=== PATIENT | female | born 1955 | race Caucasian/White ===

== ENCOUNTER 2016-08-27 10:32 | Emergency (ER) | payer OTHER ==
[~2016-08-27] VITALS: Ht 160 cm; Wt 122.0 kg
[~2016-08-27 10:32] MED LIST: BENZ100 PO; CIPRHC10A LEFT EAR; CLON-352 PO; FURO20 PO; HUMALOG SQ; METF-324 PO; PROZ20CA11 PO; ROBIACUDC PO; SYNT112T PO
[2016-08-27 10:44] VITALS: BP 161/84; PULSE 76; RESP 16; TEMP 97.8; O2SAT 97
[2016-08-27] MEDS ORDERED: SYNT112T PO (11:15)
[2016-08-27] MEDS ORDERED: HUMALOG 70/30 SQ (11:15)
[2016-08-27] MEDS ORDERED: CLON0.1T PO (11:15)
[2016-08-27] MEDS ORDERED: METF1000 PO (11:15)
[2016-08-27] MEDS ORDERED: FURO1TAB62 PO (11:15)
[2016-08-27] MEDS ORDERED: PROZ20CA11 PO (11:15)
--- NOTE | 2016-08-27 11:30 | PD ---
HPI Chief Complaint: Musculoskeletal Complaint Time Seen by Provider: 11:27 Travel History International Travel<30 days: No Contact w/Intl Traveler<30days: No Traveled to known affect area: No History of Present Illness HPI 61-year-old female presents to the emergency department for evaluation of left hand pain for one week. She denies a traumatic injury. She states is on the volar surface below the again third and fourth digits. She states that sometimes, her left third finger will get stuck in a flexed position. She does report a history of an old hand injury. Patient reports a history of diabetes, hypertension, diabetes, hypothyroidism. Patient denies any fevers or chills. She denies any other complaints at this time to [facility] Past Medical History Hx Anticoagulant Therapy: No Arthritis: Yes Anxiety: Yes Cardiovascular Problems: Yes (htn on meds) High Cholesterol: Yes Diabetes: Yes (type 2) Patient Takes Glucophage: Yes Diminished Hearing: No Hypertension: Yes Immunizations Current: Yes Thyroid Disease: Yes ?: Not Menopausal: Yes : 3 Para: 3 Miscarriage: 0 : 0 Past Surgical History Endocrine Surgery: Yes (THYROID) Gynecologic Surgery: Yes (1995--remaining ovary and tube removed) Hysterectomy: Yes Joint Replacement: Yes (KNEE) Oral Surgery: Yes (DEVIATED SEPTUM 1987) Tonsillectomy: Yes Other Surgery: Yes (BILATERAL WRIST SURGERY FOR CARPEL TUNNEL, NOSE SURGERY) Social History Alcohol Use: No Tobacco Use: No Substance Use: No Allergies-Medications (Allergen,Severity, Reaction): Coded Allergies: Ampicillin (Verified Adverse Reaction, Severe, Diarrhea, 08/27/16) Sulfa (Verified Adverse Reaction, Severe, Upset stomach/diarrhea, 08/27/16) Reported Meds & Prescriptions Reported Meds & Active Scripts Active Reported [Humalog 70/30] 60 SQ BID Metformin (Metformin HCl) 1,000 Mg Tab 1,000 Mg PO BIDPC With meals Synthroid (Levothyroxine Sodium) 112 Mcg Tab 112 Mcg PO DAILY Lasix (Furosemide) 20 Mg Tab 20 Mg PO DAILY Prozac (Fluoxetine HCl) 20 Mg Cap 20 Mg PO DAILY Clonidine (Clonidine HCl) 0.1 Mg Tab 0.1 Mg PO TID Review of Systems Except as stated in HPI: all other systems reviewed are Neg Physical Exam Narrative GENERAL: Well-developed well-nourished female patient, ambulatory. Afebrile. SKIN: Warm and dry. No erythema or warmth noted the left hand. No evidence of cellulitis or infection. HEAD: Normocephalic. Atraumatic. EYES: No scleral icterus. No injection or drainage. NECK: Supple, trachea midline. No JVD or lymphadenopathy. CARDIOVASCULAR: Regular rate and rhythm without murmurs, gallops, or rubs. Left radial pulses 2+. Capillary refill is less than 2 seconds to the digits of the left hand. RESPIRATORY: Breath sounds equal bilaterally. No accessory muscle use. MUSCULOSKELETAL: No cyanosis, or edema. Patient has tenderness over the volar surface especially just proximal to the third digit. She has full range of motion of all digits of the left hand. She has full sensation distal left upper extremity. Data Data Last Documented VS Vital Signs Date Time Temp Pulse Resp B/P Pulse Ox O2 Delivery O2 Flow Rate FiO2 08/27/16 10:44 97.8 76 16 161/84 97 Orders Hand, Complete ([id number]) (08/27/16 ) [facility] Medical Decision Making Medical Screen Exam Complete: Yes Emergency Medical Condition: Yes Medical Record Reviewed: Yes Interpretation(s) left hand x-ray - CONCLUSION: No acute left hand abnormality is identified. There is mild osteoarthritis at the first CMC joint. Differential Diagnosis Tendinitis versus trigger finger versus contusion versus strain versus unlikely fracture versus arthritis Narrative Course 61-year-old female presents to the emergency department for evaluation of left hand pain for one week without injury. X-ray of the left hand is ordered and pending. X-ray of the left hand shows no acute left hand abnormality is identified. There is mild osteoarthritis at the first CMC joint. Patient instructed to follow-up with a hand surgeon. She'll be given the name and number of our hand surgeon on-call today. Patient will be discharged prescription for diclofenac. Patient is agreeable. Diagnosis Primary Impression: Arthritis of left hand Additional Impression: Trigger finger Qualified Code: M65.332 - Trigger middle finger of left hand Referrals: Inder Goldman MD call for appointment Patient Instructions: Arthritis (ED), General Instructions Additional Instructions: Take diclofenac as instructed as needed with food for pain. Do not take with other anti-inflammatories including ibuprofen and naproxen. Follow-up with a hand surgeon. Dr. Goldman is our hand surgeon on-call. His information is attached. Return to the emergency department for any acute worsening of symptoms. Med/Other Pt SpecificInfo: Prescription(s) given Scripts Diclofenac Sodium DR 75 Mg Tabdr75 Mg PO BID PRN (PAIN SCALE 1 TO 10) #20 TAB Ref 0 Prov:Lanie Bui 08/27/16 Disposition: 01 DISCHARGE HOME Condition: Stable Lanie Bui Aug 27, 2016 11:30
--- NOTE | 2016-08-27 12:24 | RADHPO ---
EXAM DATE/TIME: 08/27/2016 11:52 [facility] COMPARISON: No previous studies available for comparison. INDICATIONS : Left hand pain for 1 week, no known injury MEDICAL HISTORY : Diabetes mellitus type II. SURGICAL HISTORY : None. ENCOUNTER: Initial ACUITY: 1 week PAIN SCORE: 7/10 LOCATION: Left hand FINDINGS: Three views of the left hand demonstrate no fracture or dislocation. Mineralization is within normal limits and there is mild osteoarthritis at the first carpometacarpal joint. No soft tissue abnormalit y or radiopaque foreign body is identified. CONCLUSION: No acute left hand abnormality is identified. There is mild osteoarthritis at the first CMC joint. Marlo Velasco MD on August 27, 2016 at 12:22 Board Certified Radiologist. This report was verified electronically.
[2016-08-27] MEDS ORDERED: DICL75TA PO (12:30)
== END 2016-08-27 12:42 | disposition home or self-care (01) ==
LOC: PHEFT 10:32
DX: M19.041 Primary osteoarthritis, right hand (principal); I10 Essential (primary) hypertension; E11.9 Type 2 diabetes mellitus without complications; E03.9 Hypothyroidism, unspecified
CPT/HCPCS: 73130; 99283

== ENCOUNTER 2017-01-02 09:25 | Emergency (ER) | payer OTHER ==
[~2017-01-02] VITALS: Ht 160 cm; Wt 120.7 kg
[~2017-01-02 09:25] MED LIST changes: -BENZ100 PO; -CIPRHC10A LEFT EAR; -CLON-352 PO; +CLON0.1T PO; +DICL75TA PO; +FURO1TAB62 PO; -FURO20 PO; +HUMALOG 70/30 SQ; -HUMALOG SQ; -METF-324 PO; +METF1000 PO; -ROBIACUDC PO
[2017-01-02 09:32] VITALS: BP 136/68; PULSE 74; RESP 19; TEMP 98.1; O2SAT 98
[2017-01-02] MEDS ORDERED: FURO20TA PO (09:43)
[2017-01-02] MEDS ORDERED: LISI-515 PO (09:43)
--- NOTE | 2017-01-02 10:06 | PD ---
HPI Chief Complaint: Back/ Neck Pain or Injury Time Seen by Provider: 09:36 Travel History International Travel<30 days: No Contact w/Intl Traveler<30days: No Traveled to known affect area: No History of Present Illness HPI 61yo F with PMH of DM presents to the ED with c/o lower back pain since yesterday. States that she fell asleep on the chair and pain is bilateral lower back and worst with movement. Pain is constant and nonradiating. Denies any trauma, fall, fever, focal weakness or numbness. Pt also with dysuria since yesterday. Denies any cough, chest pain, sob, abdominal pain. PFSH Past Medical History Hx Anticoagulant Therapy: No Arthritis: Yes Anxiety: Yes Cardiovascular Problems: Yes (htn on meds) High Cholesterol: Yes Diabetes: Yes (type 2) Patient Takes Glucophage: Yes Diminished Hearing: No Hypertension: Yes Immunizations Current: Yes Thyroid Disease: Yes ?: Not Menopausal: Yes : 3 Para: 3 Miscarriage: 0 : 0 Past Surgical History Endocrine Surgery: Yes (THYROID) Gynecologic Surgery: Yes (1995--remaining ovary and tube removed) Hysterectomy: Yes Joint Replacement: Yes (KNEE) Oral Surgery: Yes (DEVIATED SEPTUM 1987) Tonsillectomy: Yes Other Surgery: Yes (BILATERAL WRIST SURGERY FOR CARPEL TUNNEL, NOSE SURGERY) Social History Alcohol Use: No Tobacco Use: No Substance Use: No Allergies-Medications (Allergen,Severity, Reaction): Coded Allergies: Ampicillin (Verified Adverse Reaction, Severe, Diarrhea, 01/02/17) Sulfa (Verified Adverse Reaction, Severe, Upset stomach/diarrhea, 01/02/17) Reported Meds & Prescriptions Reported Meds & Active Scripts Active Lortab (Hydrocodone-Acetaminophen) 5-325 Mg Tab 1 Tab PO Q6H PRN Reported Furosemide 20 Mg Tab Unknown Dose PO DAILY Lisinopril 20 Mg Tab 20 Mg PO DAILY [Humalog 70/30] 60 SQ BID Metformin (Metformin HCl) 1,000 Mg Tab 1,000 Mg PO BIDPC With meals Synthroid (Levothyroxine Sodium) 112 Mcg Tab 112 Mcg PO DAILY Prozac (Fluoxetine HCl) 20 Mg Cap 30 Mg PO DAILY Review of Systems Except as stated in HPI: all other systems reviewed are Neg Physical Exam Narrative GENERAL: 61yo F not in distress. SKIN: Focused skin assessment warm/dry. HEAD: Atraumatic. Normocephalic. CARDIOVASCULAR: Regular rate and rhythm. No murmur appreciated. RESPIRATORY: No accessory muscle use. Clear to auscultation. Breath sounds equal bilaterally. GASTROINTESTINAL: Abdomen soft, non-tender, nondistended. BACK: No midline ttp. Paraspinal ttp lumbar spine bilaterally. Negative straight leg test. MUSCULOSKELETAL: No obvious deformities. No clubbing. No cyanosis. No edema. NEUROLOGICAL: Awake and alert. No obvious cranial nerve deficits. Motor grossly within normal limits. Normal speech. PSYCHIATRIC: Appropriate mood and affect; insight and judgment normal. Data Data Last Documented VS Vital Signs Date Time Temp Pulse Resp B/P Pulse Ox O2 Delivery O2 Flow Rate FiO2 01/02/17 09:32 98.1 74 19 136/68 98 Orders Urinalysis - C+S If Indicated (01/02/17 10:01) Blood Glucose (01/02/17 10:01) Ketorolac Inj (Toradol Inj) (01/02/17 10:15) Labs Laboratory Tests Test 01/02/17 10:05 Urine Collection Type CLEAN CATCH Urine Color STRAW Urine Turbidity CLEAR Urine pH 5.5 Urine Specific [place] 1.007 Urine Protein NEG mg/dL Urine Glucose (UA) NEG mg/dL Urine Ketones NEG mg/dL Urine Occult Blood NEG Urine Nitrite NEG Urine Bilirubin NEG Urine Leukocyte Esterase NEG Urine Squamous Epithelial 0-5 /hpf Cells Urine Amorphous Sediment FEW Microscopic Urinalysis Comment CULT NOT INDICATED Urine Collection Time 1005 [facility] Medical Decision Making Medical Screen Exam Complete: Yes Emergency Medical Condition: Yes Interpretation(s) Laboratory Tests Test 01/02/17 10:05 Urine Collection Type CLEAN CATCH Urine Color STRAW (YELLW/STRAW) Urine Turbidity CLEAR (CLEAR) Urine pH 5.5 (5.0-8.5) Urine Specific [place] 1.007 (1.002-1.035) Urine Protein NEG mg/dL (NEG-TRACE) Urine Glucose (UA) NEG mg/dL (NEG) Urine Ketones NEG mg/dL (NEG) Urine Occult Blood NEG (NEG) Urine Nitrite NEG (NEG) Urine Bilirubin NEG (NEG) Urine Leukocyte Esterase NEG (NEG) Urine Squamous Epithelial 0-5 /hpf (0-5) Cells Urine Amorphous Sediment FEW Microscopic Urinalysis Comment CULT NOT INDICATED Urine Collection Time 1005 Differential Diagnosis Musculoskeletal pain vs. pyelonephritis vs. muscle sprain Narrative Course 61yo F with lower back pain that seems very musculoskeletal. UA showed no blood or leukocyte. Pt given toradol and states her pain has resolved. Blood glucose is 189. No red flags. Return precautions given. Pt states naproxen does not help with her pain and wants something stronger. Will give a few lortab and have pt follow up with PMD. Diagnosis Primary Impression: Back pain Qualified Code: M54.5 - Acute bilateral low back pain without sciatica Patient Instructions: General Instructions Departure Forms: Tests/Procedures Additional Instructions: Please follow up with your PMD in 1-2 days. Return to the ED if symptoms worsen. Med/Other Pt SpecificInfo: Prescription(s) given Scripts Hydrocodone-Acetaminophen (Lortab)5-325 Mg Tab1 Tab PO Q6H PRN (PAIN) #7 TAB Ref 0 Prov:Tova Jones DO 01/02/17 Disposition: 01 DISCHARGE HOME Condition: Stable Tova Jones DO January 02, 2017 10:06
[2017-01-02 10:11] LABS: BLOOD, URINE NEG (NEG); GLUCOSE,URINE NEG (NEG); KETONE, URINE NEG (NEG); NITRITE,URINE NEG (NEG); PH, URINE 5.5 (5.0-8.5)
[2017-01-02 10:13] LABS: METHOD OF COLLECTION CLEAN CATCH; URINE COLOR STRAW (YELLW/STRAW)
[2017-01-02] MEDS ORDERED: KETOROLAC TROMETHAMINE 60 MG/2 ML (IM) VIAL IM ONE (10:15)
[2017-01-02 10:27] LABS: COMMENT (UR) CULT NOT INDICATED; CULTURE IF INDICATED CULT NOT INDICATED; SQUAMOUS EPITHELIAL CELL URINE 0-5 /hpf (0-5)
[2017-01-02] MEDS ORDERED: HYDR-3533 PO (11:26)
== END 2017-01-02 11:31 | disposition home or self-care (01) ==
LOC: PHEFT 09:25
DX: M54.5 Low back pain (principal); R30.0 Dysuria; M19.90 Unspecified osteoarthritis, unspecified site; F41.9 Anxiety disorder, unspecified; E78.00 Pure hypercholesterolemia, unspecified; E11.9 Type 2 diabetes mellitus without complications; I10 Essential (primary) hypertension; E07.9 Disorder of thyroid, unspecified; Z79.4 Long term (current) use of insulin
CPT/HCPCS: 81001; 96372; 99284; J1885

== ENCOUNTER 2017-01-21 18:07 | Emergency (ER) | payer OTHER ==
[~2017-01-21] VITALS: Ht 160 cm; Wt 120.0 kg
[~2017-01-21 18:07] MED LIST changes: -CLON0.1T PO; -DICL75TA PO; -FURO1TAB62 PO; +FURO20TA PO; +HYDR-3533 PO; +LISI-515 PO
[2017-01-21 18:11] VITALS: BP_SYST 143; BP_DIAS 29; BP_DIAS 79; PULSE 83; RESP 18; TEMP 98.8; O2SAT 98
[2017-01-21] MEDS ORDERED: NOVO7030P2 SQ (18:17)
[2017-01-21] MEDS ORDERED: OMEP20TA PO (18:17)
[2017-01-21] MEDS ORDERED: ROBA500T PO (18:30)
[2017-01-21] MEDS ORDERED: IBUP800T23 PO (18:30)
--- NOTE | 2017-01-21 18:31 | PD ---
HPI Chief Complaint: Musculoskeletal Complaint Time Seen by Provider: 18:15 Travel History International Travel<30 days: No Contact w/Intl Traveler<30days: No Traveled to known affect area: No History of Present Illness HPI 61-year-old female presents emergency department for evaluation right-sided neck pain and muscle stiffness since this morning. Patient reports that she slipped on the refiner last night and when she awoke she noticed the right side of her neck was stiff. Throughout the day has become increasingly more painful and stiff with difficulty turning head from [id number]. She denies any midline tenderness. She denies trauma or fall. She denies numbness/tingling/ weakness in the upper extremities. Patient reports pain in the right side of the neck spasming and stiffness in nature, nonradiating, worse with movement relieved with rest, severity 6 out of 10. PFSH Past Medical History Narrative Medical Significant for diabetes on Glucophage, hypertension, dyslipidemia, anxiety Hx Anticoagulant Therapy: No Arthritis: Yes Anxiety: Yes Cardiovascular Problems: Yes (htn on meds) High Cholesterol: Yes Diabetes: Yes (type 2) Patient Takes Glucophage: Yes Diminished Hearing: No Hypertension: Yes Immunizations Current: Yes Thyroid Disease: Yes Tetanus Vaccination: < 5 Years Influenza Vaccination: No Menopausal: Yes : 3 Para: 3 Miscarriage: 0 : 0 Past Surgical History Endocrine Surgery: Yes (THYROID) Gynecologic Surgery: Yes (1995--remaining ovary and tube removed) Hysterectomy: Yes Joint Replacement: Yes (KNEE) Oral Surgery: Yes (DEVIATED SEPTUM 1987) Tonsillectomy: Yes Other Surgery: Yes (BILATERAL WRIST SURGERY FOR CARPEL TUNNEL, NOSE SURGERY) Social History Alcohol Use: No Tobacco Use: No Substance Use: No Allergies-Medications (Allergen,Severity, Reaction): Coded Allergies: Ampicillin (Verified Adverse Reaction, Severe, Diarrhea, 01/02/17) Sulfa (Verified Adverse Reaction, Severe, Upset stomach/diarrhea, 01/02/17) Reported Meds & Prescriptions Reported Meds & Active Scripts Active Robaxin (Methocarbamol) 500 Mg Tab 500 Mg PO TID PRN Ibuprofen 800 Mg Tab 800 Mg PO Q8H PRN Reported Novolin 70-30 Inj (Insulin Human Isoph/Insulin Regular) 1,000 Unit/10 Ml Vial 1 Units SQ Omeprazole 20 Mg Tab 20 Mg PO DAILY Furosemide 20 Mg Tab Unknown Dose PO DAILY Lisinopril 20 Mg Tab 20 Mg PO DAILY Metformin (Metformin HCl) 1,000 Mg Tab 1,000 Mg PO BIDPC With meals Synthroid (Levothyroxine Sodium) 112 Mcg Tab 112 Mcg PO DAILY Prozac (Fluoxetine HCl) 20 Mg Cap 30 Mg PO DAILY Review of Systems Except as stated in HPI: all other systems reviewed are Neg Physical Exam Narrative GENERAL: Alert, well-appearing female SKIN: Focused skin assessment warm/dry. HEAD: Atraumatic. Normocephalic. EYES: Pupils equal and round. No scleral icterus. No injection or drainage. ENT: No nasal bleeding or discharge. Mucous membranes pink and moist. NECK: Trachea midline. No JVD. No midline spine tenderness. Right-sided trapezius muscle spasm and tenderness. CARDIOVASCULAR: Regular rate and rhythm. No murmur appreciated. RESPIRATORY: No accessory muscle use. Clear to auscultation. Breath sounds equal bilaterally. GASTROINTESTINAL: Abdomen soft, non-tender, nondistended. Hepatic and splenic margins not palpable. MUSCULOSKELETAL: No obvious deformities. No clubbing. No cyanosis. No edema. NEUROLOGICAL: Awake and alert. No obvious cranial nerve deficits. Motor grossly within normal limits. Normal speech. PSYCHIATRIC: Appropriate mood and affect; insight and judgment normal. Data Data Last Documented VS Vital Signs Date Time Temp Pulse Resp B/P Pulse Ox O2 Delivery O2 Flow Rate FiO2 01/21/17 18:11 98.8 83 18 143/79 98 Room Air Orders Ketorolac Inj (Toradol Inj) (01/21/17 18:45) Orphenadrine Inj (Norflex Inj) (01/21/17 18:45) MDM Medical Decision Making Medical Screen Exam Complete: Yes Emergency Medical Condition: Yes Differential Diagnosis Torticollis, cervical strain Narrative Course 61-year-old female presents emergency department for right-sided neck pain after sleeping on a recliner last night. She reports the neck has become increasingly more painful and stiff as the day goes on. The pain is localized to the right side nonradiating severity 6 out of 10 worse with movement of the neck. No midline tenderness. Patient has palpable trapezius muscle spasm on the right side. Diagnosis Primary Impression: Trapezius muscle spasm Referrals: Primary Care Physician Additional Instructions: Take the medication as prescribed as needed for pain and muscle spasm in the neck. Follow-up the primary care doctor for reevaluation. Return to emergency department if new or worsening symptoms. Scripts Methocarbamol (Robaxin)500 Mg [id number] Mg PO TID PRN (MUSCLE SPASM) #15 TAB Prov:Hanna Zhu 01/21/17 Ibuprofen 800 Mg [id number] Mg PO Q8H PRN (Pain/Inflammation) #30 TAB Prov:Hanna Zhu 01/21/17 Disposition: 01 DISCHARGE HOME Condition: Stable Hanna Zhu Jan 21, 2017 18:31
[2017-01-21] MEDS ORDERED: ORPHENADRINE INJ 60 MG/2 ML AMP IM ONE (18:45)
[2017-01-21] MEDS ORDERED: KETOROLAC TROMETHAMINE 60 MG/2 ML (IM) VIAL IM ONE (18:45)
== END 2017-01-21 18:51 | disposition home or self-care (01) ==
LOC: PHEFT 18:07
DX: M62.838 Other muscle spasm (principal); E11.9 Type 2 diabetes mellitus without complications; E78.00 Pure hypercholesterolemia, unspecified; I10 Essential (primary) hypertension; Z79.4 Long term (current) use of insulin
CPT/HCPCS: 96372; 99284; J1885; J2360

== ENCOUNTER → 2017-05-11 | Day surgery (SDC) | payer OTHER ==
[~2017-05-11] MED LIST changes: +ALBI1INJ SQ; +BUPIVACAINE HCL PF 0.5% 10 ML VIAL ONE; +BUPIVACAINE HCL PF 0.5% 30 ML VIAL ONE; +BUSP5TAB PO; -HUMALOG 70/30 SQ; -HYDR-3533 PO; +IBUP800T23 PO; +KETOROLAC TROMETHAMINE 30 MG/ML (IVP) VIAL IV PUSH ONE; +LEVO75TA3 PO; +MIDAZOLAM HCL 2 MG/2 ML VIAL ONE; +NOVO7030P2 SQ; +OMEP20TA PO; +ONDANSETRON HCL 4 MG/2 ML VIAL IV PUSH ONE; +PROPOFOL 100 MG/10 ML INJ IV ONE; +ROBA500T PO; +TRAM50TA PO; +ZOFR4TAB PO; +ceFAZolin INJ 1,000 MG VIAL ONE
--- NOTE | 2017-05-11 13:42 | PD.OP ---
cc: Peterson Bravo Jr., MD Operative Report Date of Surgery: May 11, 2017 Preoperative Diagnosis: right long finger trigger finger Postoperative Diagnosis: same Procedure: right long finger trigger finger release Anesthesia: gen Surgeon: Peterson Bravo Chief Resource Officer(s): staff Resident Surgeon: none Operation and Findings: Patient was seen and evaluated preoperatively and found to have a debilitating and painful trigger finger at the right long, that has so far failed nonoperative treatment. Informed consent was obtained after detailed discussion of risk and benefits including bleeding, infection, injury to arteries, nerves, and blood vessels, weakness and numbness of hand, and tendon rupture. Informed consent was obtained. Patient received IV antibiotics prior to incision. Timeout procedure was performed. Operative extremity was prepped with alcohol followed by Hibiclens and draped usual sterile fashion. A 1 cm long vertical incision was made at the proximal palmar crease and followed by sharp dissection through the subcutaneous tissue. Blunt dissection was used to expose the flexor tendon and the proximal edge of the A1 daniel. Using an #11 knife blade, the A1 daniel was incised from proximal to distal. The finger was then put through a full range of motion with no triggering and I could see the hyperthrophic bump on the flexor tendon appear and disappear, and there was no triggering. The wound was irrigated copiously with normal saline and the incision closed with 4 interrupted simple sutures of 2-0 nylon. A sterile pressure dressing was placed over the hand. The patient was awakened and returned to recovery in apparently good condition POSTP-OP PLAN OF ACTIVITY Antibiotics: none Antiocoagulation: none Weight bearing status: WBAT Dressing: Do not remove until outpatient clinic visit in 10days Dispo: expected discharge TODAY home from PACU Peterson Bravo Jr., MD May 11, 2017 13:42
== END | disposition home or self-care (01) ==
LOC: ESDC 09:46
PROVIDERS: ATTEND Orthopaedic Surgery
DX: M65.331 Trigger finger, right middle finger (principal); E11.9 Type 2 diabetes mellitus without complications; Z79.4 Long term (current) use of insulin
CPT/HCPCS: 01810; 26055; 82948; J0690; J1885; J2250; J2405; J3010

== ENCOUNTER → 2017-05-24 | Outpatient (CLI) | payer OTHER ==
[~2017-05-24] MED LIST changes: -BUPIVACAINE HCL PF 0.5% 10 ML VIAL ONE; -BUPIVACAINE HCL PF 0.5% 30 ML VIAL ONE; -IBUP800T23 PO; -KETOROLAC TROMETHAMINE 30 MG/ML (IVP) VIAL IV PUSH ONE; -MIDAZOLAM HCL 2 MG/2 ML VIAL ONE; -ONDANSETRON HCL 4 MG/2 ML VIAL IV PUSH ONE; -PROPOFOL 100 MG/10 ML INJ IV ONE; -ROBA500T PO; -SYNT112T PO; -ceFAZolin INJ 1,000 MG VIAL ONE
--- NOTE | 2017-05-24 10:35 | RADRPT ---
EXAM DATE/TIME: 05/24/2017 09:20 [facility] COMPARISON: No previous studies available for comparison. INDICATIONS : Right upper quadrant tenderness. MEDICAL HISTORY : Hypertension. Hypercholesterolemia. Thyroid disease. Diabetic. SURGICAL HISTORY : Tonsillectomy. Hysterectomy. Bilateral foot surgery. Bilateral knee surgery. Bilateral carpal ruth ann marlyn repair. ENCOUNTER: Initial ACUITY: 1 week PAIN SCORE: 4/10 LOCATION: Right upper quadrant MEASUREMENTS: LIVER: 20.0 cm length COMMON DUCT: 4 mm RIGHT KIDNEY: 9.4 x 5.0 x 4.6 cm FINDINGS: LIVER: Increased echotexture without focal lesion or ductal dilatation. COMMON DUCT: No intraluminal mass or stone visualized. GALLBLADDER: Contains no stones, demonstrates no wall thickening or pericholecystic fluid. PANCREAS: The visualized portions are within normal limits. RIGHT KIDNEY: No evidence of hydronephrosis, stone, or mass. CONCLUSION: 1. Sonographic features characteristic of an enlarged, fatty liver. 2. Otherwise negative. Gallbladder is sonographically normal. Cade Flannery MD on May 24, 2017 at 10:30 Board Certified Radiologist. This report was verified electronically.
== END ==
LOC: PHRAD 09:03
PROVIDERS: ATTEND Physician Assistant Medical
DX: R10.811 Right upper quadrant abdominal tenderness (principal)
CPT/HCPCS: 76705

== ENCOUNTER 2017-07-05 07:49 | Emergency (ER) | payer MEDICAID, OTHER ==
[~2017-07-05] VITALS: Ht 160 cm; Wt 106.0 kg
[~2017-07-05 07:49] MED LIST changes: -OMEP20TA PO; +OMEP20TA93 PO
[2017-07-05 07:54] VITALS: BP 173/77; PULSE 72; RESP 19; TEMP 98.1; O2SAT 96
--- NOTE | 2017-07-05 08:04 | PD ---
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 PFSH Past Medical History Hx Anticoagulant Therapy: No Arthritis: Yes Anxiety: Yes Cardiovascular Problems: Yes (htn on meds) High Cholesterol: Yes Diabetes: Yes (type 2) Diminished Hearing: No Hypertension: Yes Immunizations Current: Yes Thyroid Disease: Yes Menopausal: Yes : 3 Para: 3 Miscarriage: 0 : 0 Past Surgical History Endocrine Surgery: Yes (THYROID) Gynecologic Surgery: Yes (1995--remaining ovary and tube removed) Hysterectomy: Yes Joint Replacement: Yes (KNEE) Oral Surgery: Yes (DEVIATED SEPTUM 1987) Tonsillectomy: Yes Other Surgery: Yes (BILATERAL WRIST SURGERY FOR CARPEL TUNNEL, NOSE SURGERY) Social History Alcohol Use: No Tobacco Use: No Substance Use: No Allergies-Medications (Allergen,Severity, Reaction): Coded Allergies: Sulfa (Sulfonamide Antibiotics) (Unverified Adverse Reaction, Severe, Upset stomach/diarrhea, 07/05/17) ampicillin (Unverified Adverse Reaction, Severe, Diarrhea, 07/05/17) Reported Meds & Prescriptions Reported Meds & Active Scripts Active Buspirone (Buspirone HCl) 5 Mg Tab 5 Mg PO BID Levothyroxine (Levothyroxine Sodium) 75 Mcg Tab 75 Mcg PO DAILY Tramadol (Tramadol HCl) 50 Mg Tab 50 Mg PO Q6H PRN Reported Novolin 70-30 Inj (Insulin Human Isoph/Insulin Regular) 1,000 Unit/10 Ml Vial 25 Units SQ BID Metformin (Metformin HCl) 500 Mg Tab 500 Mg PO BIDPC Tanzeum 4-Pack Inj (Albiglutide) 30 Mg Pfpen 30 Mg SQ Q7D Omeprazole 20 Mg Tab 20 Mg PO DAILY Furosemide 20 Mg Tab Unknown Dose PO DAILY Lisinopril 20 Mg Tab 20 Mg PO DAILY Prozac (Fluoxetine HCl) 20 Mg Cap 30 Mg PO DAILY Review of Systems General / Constitutional: No: Fever Eyes: No: Visual changes HENT: No: Headaches Cardiovascular: No: Chest Pain or Discomfort Respiratory: No: Shortness of Breath Gastrointestinal: No: Abdominal Pain Genitourinary: No: Dysuria Musculoskeletal: Positive: Pain Skin: No Rash Neurologic: No: Weakness Psychiatric: No: Depression Endocrine: No: Polydipsia Hematologic/Lymphatic: No: Easy Bruising Physical Exam Narrative GENERAL: SKIN: Warm and dry. HEAD: Atraumatic. Normocephalic. EYES: Pupils equal and round. No scleral icterus. No injection or drainage. ENT: No nasal bleeding or discharge. Mucous membranes pink and moist. NECK: Trachea midline. No JVD. CARDIOVASCULAR: Regular rate and rhythm. RESPIRATORY: No accessory muscle use. Clear to auscultation. Breath sounds equal bilaterally. GASTROINTESTINAL: Abdomen soft, non-tender, nondistended. MUSCULOSKELETAL: Extremities without clubbing, cyanosis, or edema. No obvious deformities, however limited rom due to pain NEUROLOGICAL: Awake and alert. No obvious cranial nerve deficits. Motor grossly within normal limits. Five out of 5 muscle strength in the arms and legs. Normal speech. PSYCHIATRIC: Appropriate mood and affect; insight and judgment normal. Data Data Last Documented VS Vital Signs Date Time Temp Pulse Resp B/P (MAP) Pulse Ox O2 Delivery O2 Flow Rate FiO2 07/05/17 07:54 98.1 72 19 173/77 (109) 96 Orders Orders Wrist, Complete ([id number]) (07/05/17 ) [facility] Medical Decision Making Medical Screen Exam Complete: Yes Emergency Medical Condition: Yes Medical Record Reviewed: Yes Differential Diagnosis wrist fx v dislocation v subluxation v tendonitis v arthritis Narrative Course per my interpretation xray does not show any e/o fracture/dislocation. Diagnosis Primary Impression: tendonitis Patient Instructions: General Instructions, Tendinitis (ED) Scripts Ketorolac (Ketorolac) 10 Mg Tab 10 MG PO TID for Pain Management, #12 TAB 0 Refills Prov: Jan Hays MD 07/05/17 Disposition: 01 DISCHARGE HOME Condition: Stable Jan Hays MD Jul 05, 2017 08:04
[2017-07-05] MEDS ORDERED: METF500T PO (08:07)
[2017-07-05] MEDS ORDERED: NOVO7030P2 SQ (08:07)
[2017-07-05] MEDS ORDERED: KETO10 PO (08:33)
--- NOTE | 2017-07-05 08:42 | RADRPT ---
EXAM DATE/TIME: 07/05/2017 08:15 [facility] COMPARISON: No previous studies available for comparison. INDICATIONS : Fall, left medial wrist pain. MEDICAL HISTORY : None. SURGICAL HISTORY : left carpal tunnel ENCOUNTER: Initial ACUITY: 4 - 6 days PAIN SCORE: 5/10 LOCATION: Left medial wrist FINDINGS: Three view examination of the left wrist demonstrates no soft tissue swelling, dislocation, or fractu re. The carpal bones are in normal alignment. The joint spaces are maintained. Bony mineralization is normal. CONCLUSION: Unremarkable examination of the left wrist. Bruce Terrell Jr., MD on July 05, 2017 at 8:38 Board Certified Radiologist. This report was verified electronically.
== END 2017-07-05 08:45 | disposition home or self-care (01) ==
LOC: PHEFT 07:49
DX: M77.9 Enthesopathy, unspecified (principal)
CPT/HCPCS: 73110; 99283; L3908

== ENCOUNTER 2017-07-19 14:12 | Emergency (ER) | payer OTHER ==
[~2017-07-19] VITALS: Ht 160 cm; Wt 105.2 kg
[~2017-07-19 14:12] MED LIST changes: +KETO10 PO; -METF1000 PO; +METF500T PO; -ZOFR4TAB PO
[2017-07-19 14:16] VITALS: BP 167/77; PULSE 70; RESP 18; TEMP 97.6; O2SAT 97
--- NOTE | 2017-07-19 14:38 | PD ---
HPI Chief Complaint: Musculoskeletal Complaint Time Seen by Provider: 14:21 Travel History International Travel<30 days: No Contact w/Intl Traveler<30days: No Traveled to known affect area: No History of Present Illness HPI Patient comes emergency department for continued pain over the ulnar aspect of the left wrist that she was seen here for on the of last month. Patient denied any trauma at that time, however today states that she did actually tripped and fell before Thanksgiving hitting the ulnar aspect of her left wrist on the ground and then had injured further when someone grabbed same wrist while helping her stand up from the fall. Patient states she has been taking the medication prescribed, but found Aleve helps more. Pain is worse with palpation, certain movement, and resting on left wrist. Patient's been wearing a wrist brace that helps some. Patient reports blood sugars running 100-120. Denies any other known trauma. Describes pain as burning like in nature without radiation. PFSH Past Medical History Hx Anticoagulant Therapy: No Arthritis: Yes Anxiety: Yes Cardiovascular Problems: Yes (htn on meds) High Cholesterol: Yes Diabetes: Yes (type 2) Patient Takes Glucophage: Yes Diminished Hearing: No Hypertension: Yes Immunizations Current: Yes Thyroid Disease: Yes Influenza Vaccination: No Menopausal: Yes : 3 Para: 3 Miscarriage: 0 : 0 Past Surgical History Endocrine Surgery: Yes (THYROID) Gynecologic Surgery: Yes (1995--remaining ovary and tube removed) Hysterectomy: Yes Joint Replacement: Yes (KNEE) Oral Surgery: Yes (DEVIATED SEPTUM 1987) Tonsillectomy: Yes Other Surgery: Yes (BILATERAL WRIST SURGERY FOR CARPEL TUNNEL, NOSE SURGERY) Social History Alcohol Use: No Tobacco Use: No Substance Use: No Allergies-Medications (Allergen,Severity, Reaction): Coded Allergies: Sulfa (Sulfonamide Antibiotics) (Unverified Adverse Reaction, Severe, Upset stomach/diarrhea, 07/05/17) ampicillin (Unverified Adverse Reaction, Severe, Diarrhea, 07/05/17) Reported Meds & Prescriptions Reported Meds & Active Scripts Active Ketorolac (Ketorolac Tromethamine) 10 Mg Tab 10 Mg PO TID Buspirone (Buspirone HCl) 5 Mg Tab 5 Mg PO BID Levothyroxine (Levothyroxine Sodium) 75 Mcg Tab 75 Mcg PO DAILY Tramadol (Tramadol HCl) 50 Mg Tab 50 Mg PO Q6H PRN Reported Novolin 70-30 Inj (Insulin Human Isoph/Insulin Regular) 1,000 Unit/10 Ml Vial 25 Units SQ BID Metformin (Metformin HCl) 500 Mg Tab 500 Mg PO BIDPC Tanzeum 4-Pack Inj (Albiglutide) 30 Mg Pfpen 30 Mg SQ Q7D Omeprazole 20 Mg Tab 20 Mg PO DAILY Furosemide 20 Mg Tab Unknown Dose PO DAILY Lisinopril 20 Mg Tab 20 Mg PO DAILY Prozac (Fluoxetine HCl) 20 Mg Cap 30 Mg PO DAILY Review of Systems Except as stated in HPI: all other systems reviewed are Neg Physical Exam Narrative GENERAL: Well-developed, overly nourished, in no acute distress, and non-ill appearing. SKIN: Focused skin assessment warm and dry. HEAD: Atraumatic. Normocephalic. EYES: Pupils equal and round. EOMI. No scleral icterus. No injection or drainage. ENT: No nasal bleeding or discharge. Mucous membranes pink and moist. NECK: Trachea midline. Supple. No nuclear rigidity. CARDIOVASCULAR: Radial pulses 2+, intact, and equal bilaterally. Capillary refill less than 2 seconds. RESPIRATORY: No accessory muscle use. No respiratory distress. MUSCULOSKELETAL: No obvious deformities. No clubbing. No cyanosis. No edema. Full range of motion. Wrist: FROM and equal BL with passive flexion, extension, and pronation/supination. Capillary refill less than 2 seconds distal to injury and equal BL. FROM distal to injury and equal BL. Strength distal to injury equal BL. NV intact distal to injury. Flexion and extension of thumb equal BL. Equal strength and movement with abduction/adductions of BL fingers. Sanitation Inspector strength equal BL. No tenderness to the anatomical snuffbox. Patient reports tenderness to palpation of her ulnar aspect of left wrist. No crepitus. NEUROLOGICAL: Awake and alert. No obvious cranial nerve deficits. Motor grossly within normal limits. Normal speech. PSYCHIATRIC: Appropriate mood and affect; insight and judgment normal. Data Data Last Documented VS Vital Signs Date Time Temp Pulse Resp B/P (MAP) Pulse Ox O2 Delivery O2 Flow Rate FiO2 07/19/17 15:03 07/19/17 14:16 97.6 70 18 97 Orders Orders Dexamethasone Inj (Decadron Inj) (07/19/17 14:45) Ed Discharge Order (07/19/17 14:42) MDM Medical Decision Making Medical Screen Exam Complete: Yes Emergency Medical Condition: Yes Medical Record Reviewed: Yes Differential Diagnosis Fracture, strain, contusion, dislocation Narrative Course There is no clinical evidence to suspect bony injury by exam. The patient has full range of motion on active and passive motions. There is no significant edema or effusion or evidence of joint injury nor proximal or distal joint effusion/injury. The distal extremity appears neurovascularly intact, without evidence of neurovascular injury nor compartment syndrome. Tendon exam also was intact. The patient was discharged and given warnings for vascular compromise. The patient is to follow up with their regular physician and/or hand surgeon. The patient agrees with plan. Patient in no obvious distress upon re-evaluation. Any questions/concerns in reference to patient diagnosis/condition discussed and clarified prior to patient's discharge. Reinforced sheer importance of close follow up with patient 's primary physician or primary care clinic. Instructed patient to return to ED immediately, if symptoms return/worsen. Patient showed understanding of above instructions. Further instructions and recommendations were detailed in discharge paperwork. Patient ambulated without difficulty out of ED at discharge. Diagnosis Primary Impression: Left wrist pain Referrals: Inder Goldman MD Patient Instructions: General Instructions, Wrist Injury (GEN) Additional Instructions: Follow-up with your primary care physician and/or hand surgeon in 2-3 days for reevaluation. Use [id number] Tylenol as needed for pain. Follow instructions on the packaging. Apply ice to affected area 20 minutes per hour as needed for pain. Return to the emergency department if symptoms get worse. Disposition: 01 DISCHARGE HOME Condition: Stable Gregorio Martinez Jul 19, 2017 14:38
[2017-07-19] MEDS ORDERED: DEXAMETHASONE SOD PHOS 4 MG/ML VIAL IM ONE (14:45)
[2017-08-04] MEDS ORDERED: LEVO75TA3 PO ×2 (15:43→16:52)
== END 2017-07-19 15:23 | disposition home or self-care (01) ==
LOC: PHEFT 14:12
DX: M25.532 Pain in left wrist (principal); E11.9 Type 2 diabetes mellitus without complications; E78.00 Pure hypercholesterolemia, unspecified; I10 Essential (primary) hypertension; Z79.4 Long term (current) use of insulin
CPT/HCPCS: 96372; 99284; J1100

== ENCOUNTER 2018-01-24 14:54 | Emergency (ER) | payer SELFPAY ==
[~2018-01-24] VITALS: Ht 160 cm; Wt 106.5 kg
--- NOTE | 2018-01-24 15:00 | PD ---
HPI Chief Complaint: Syncope Time Seen by Provider: 15:00 Travel History International Travel<30 days: No Contact w/Intl Traveler<30days: No Traveled to known affect area: No History of Present Illness HPI 62-year-old female says that she was at a grocery store when she started getting light headed and dizzy and not feeling good. She went to her car but says that it was hot and did not know what happened but apparently she was found unconscious in her car. 911 was called and when EMS arrived she was awake but nauseous and vomited once or twice. Her vital signs were stable by mechanical technical service specialist. She is a diabetic and her blood glucose was 111. Patient denied of any chest pain or headache. She says she continues to be nauseous right now. She felt fine before going to the store. No history of diarrhea. Currently she appears to be in mild distress and just feels hot. PFSH Past Medical History Narrative Medical List of her past medical, surgical, social and family history is reviewed from the nursing note. Hx Anticoagulant Therapy: No Arthritis: Yes Anxiety: Yes Cardiovascular Problems: Yes (htn on meds) High Cholesterol: Yes Diabetes: Yes (type 2) Diminished Hearing: No Hypertension: Yes Immunizations Current: Yes Thyroid Disease: Yes Menopausal: Yes : 3 Para: 3 Miscarriage: 0 : 0 Past Surgical History Endocrine Surgery: Yes (THYROID) Gynecologic Surgery: Yes (1995--remaining ovary and tube removed) Hysterectomy: Yes Joint Replacement: Yes (KNEE) Oral Surgery: Yes (DEVIATED SEPTUM 1987) Tonsillectomy: Yes Other Surgery: Yes (BILATERAL WRIST SURGERY FOR CARPEL TUNNEL, NOSE SURGERY) Social History Alcohol Use: No Tobacco Use: No Substance Use: No Allergies-Medications (Allergen,Severity, Reaction): Coded Allergies: Sulfa (Sulfonamide Antibiotics) (Unverified Adverse Reaction, Severe, Upset stomach/diarrhea, 01/24/18) ampicillin (Unverified Adverse Reaction, Severe, Diarrhea, 01/24/18) Uncoded Allergies: FLU VAC (Allergy, Severe, Anaphylaxis, 01/24/18) Comments List of her allergies reviewed from the nursing note. Reported Meds & Prescriptions Reported Meds & Active Scripts Active Reported Gabapentin 100 Mg Cap Unknown Dose PO DIRECTED Clonidine (Clonidine HCl) 0.1 Mg Tab 0.1 Mg PO BID Victoza Inj (Liraglutide Inj) 18 Mg/3 Ml Pen Unknown Dose SQ DAILY Novolin 70-30 Inj (Insulin Human Isoph/Insulin Regular) 1,000 Unit/10 Ml Vial 25 Units SQ BID Metformin (Metformin HCl) 500 Mg Tab 500 Mg PO BIDPC Prozac (Fluoxetine HCl) 20 Mg Cap 30 Mg PO DAILY Narrative Medication List of her home medications reviewed from the nursing note. Review of Systems Except as stated in HPI: all other systems reviewed are Neg Gastrointestinal: Positive: Nausea, Vomiting Neurologic: Positive: Syncope Physical Exam Narrative GENERAL: Awake, alert, moderate distress SKIN: Focused skin assessment warm/dry. Multiple scabs all over the body HEAD: Atraumatic. Normocephalic. EYES: Pupils equal and round. No scleral icterus. No injection or drainage. ENT: No nasal bleeding or discharge. Mucous membranes pink and moist. NECK: Trachea midline. No JVD. CARDIOVASCULAR: Regular rate and rhythm. Dry mucous membrane. RESPIRATORY: No accessory muscle use. Clear to auscultation. Breath sounds equal bilaterally. GASTROINTESTINAL: Abdomen soft, non-tender, nondistended. Hepatic and splenic margins not palpable. MUSCULOSKELETAL: No obvious deformities. No clubbing. No cyanosis. No edema. NEUROLOGICAL: Awake and alert. No obvious cranial nerve deficits. Motor grossly within normal limits. Normal speech. PSYCHIATRIC: Appropriate mood and affect; insight and judgment normal. Data Data Last Documented VS Orders Orders Electrocardiogram (01/24/18 15:28) Basic Metabolic Panel (Bmp) (01/24/18 15:28) Complete Blood Count With Diff (01/24/18 15:28) Troponin I (01/24/18 15:28) Prothrombin Time / Inr (Pt) (01/24/18 15:28) Urinalysis - C+S If Indicated (01/24/18 15:28) Chest, Single Ap (01/24/18 15:28) Ct Brain W/O Iv Contrast(Rout) (01/24/18 15:28) Ecg Monitoring (01/24/18 15:28) Iv Access Insert/Monitor (01/24/18 15:28) Oximetry (01/24/18 15:28) Sodium Chloride 0.9% Flush (Ns Flush) (01/24/18 15:30) Sodium Chlor 0.9% 1000 Ml Inj (Ns 1000 M (6/20/18 15:28) Metoclopramide Inj (Reglan Inj) (01/24/18 15:30) Orthostatic Vital Signs (01/24/18 15:28) Sodium Chlor 0.9% 1000 Ml Inj (Ns 1000 M (01/24/18 16:15) Urine Culture (01/24/18 17:00) Ceftriaxone Inj (Rocephin Inj) (01/24/18 17:30) Blood Culture (01/24/18 17:25) Lactic Acid (01/24/18 17:25) Ed Discharge Order (01/24/18 18:45) Labs Laboratory Tests Test 01/24/18 15:30 01/24/18 16:53 01/24/18 17:00 01/24/18 17:35 White Blood Count 10.1 TH/MM3 Red Blood Count 5.59 MIL/MM3 Hemoglobin 14.2 GM/DL Hematocrit 44.9 % Mean Corpuscular Volume 80.2 FL Mean Corpuscular Hemoglobin 25.4 PG Mean Corpuscular Hemoglobin Concent 31.7 % Red Cell Distribution Width 14.1 % Platelet Count 313 TH/MM3 Mean Platelet Volume 9.6 FL Neutrophils (%) (Auto) 70.2 % Lymphocytes (%) (Auto) 22.4 % Monocytes (%) (Auto) 4.1 % Eosinophils (%) (Auto) 1.8 % Basophils (%) (Auto) 1.5 % Neutrophils # (Auto) 6.9 TH/MM3 Lymphocytes # (Auto) 2.3 TH/MM3 Monocytes # (Auto) 0.4 TH/MM3 Eosinophils # (Auto) 0.2 TH/MM3 Basophils # (Auto) 0.2 TH/MM3 CBC Comment DIFF FINAL Differential Comment Blood Urea Nitrogen 26 MG/DL Creatinine 1.20 MG/DL Random Glucose 140 MG/DL Calcium Level 9.3 MG/DL Sodium Level 136 MEQ/L Potassium Level 4.7 MEQ/L Chloride Level 101 MEQ/L Carbon Dioxide Level 26.2 MEQ/L Anion Gap 9 MEQ/L Estimat Glomerular Filtration Rate 45 ML/MIN Troponin I LESS THAN 0.02 NG/ML Prothrombin Time 10.0 SEC Prothromb Time International Ratio 1.0 RATIO Urine Color YELLOW Urine Turbidity CLEAR Urine pH 5.0 Urine Specific [place] 1.020 Urine Protein NEG mg/dL Urine Glucose (UA) NEG mg/dL Urine Ketones NEG mg/dL Urine Occult Blood NEG Urine Nitrite NEG Urine Bilirubin NEG Urine Urobilinogen 0.2 MG/DL Urine Leukocyte Esterase SMALL Urine RBC 0-3 /hpf Urine WBC 3-5 /hpf Urine Squamous Epithelial Cells 0-5 /hpf Urine Bacteria FEW /hpf Urine Hyaline Casts 3-5 /lpf Microscopic Urinalysis Comment CULTURE INDICATED Lactic Acid Level 1.6 mmol/L MDM Medical Decision Making Medical Screen Exam Complete: Yes Emergency Medical Condition: Yes Medical Record Reviewed: Yes Interpretation(s) Twelve-lead EKG was reviewed by me. Normal sinus rhythm, normal axis, nonspecific ST-T wave changes. Heart rate of 71 bpm. Differential Diagnosis Cardiac arrhythmia, dehydration, UTI Narrative Course 4:25 PM blood test results are back and patient has some renal insufficiency. She was given 1 L of IV fluid bolus and Reglan for the nausea. Orthostatic vital signs are positive. I have ordered a second liter of IV fluid bolus and I will repeat the orthostatics after that. Head CT is pending. 4:51 PM patient has not finished receiving the first liter yet. I have asked the nurse to repeat the orthostatic vital signs after the second liter bolus. Awaiting for a UA. Head CT is negative. 6:45 PM repeat orthostatics have improved significantly. I am comfortable discharging her home. Procedures EKG Prior to Arrival: No Diagnosis Primary Impression: Syncope Qualified Codes: R55 - Syncope and collapse Additional Impressions: Orthostatic hypotension Dehydration Referrals: Primary Care Physician 2 days Additional Instructions: Drink lots of fluid to stay hydrated. Try to stay cool and out of the hot environment. Please return to the ER if condition worsens or any other new concerns. Otherwise follow-up with your primary care in a day or 2. Check your blood pressure and if it is running between 100-120 systolic then you could skip your blood pressure medication over the next 24 hours. Med/Other Pt SpecificInfo: No Change to Meds Disposition: 01 DISCHARGE HOME Condition: Stable Pan Garcia MD Jan 24, 2018 15:00
[2018-01-24 15:05] VITALS: BP 140/71; PULSE 71; RESP 18; TEMP 98.5; O2SAT 97
[2018-01-24] MEDS ORDERED: GABA100C4 PO (15:13)
[2018-01-24] MEDS ORDERED: VICT18IN SQ (15:13)
[2018-01-24] MEDS ORDERED: CLON0.1T PO (15:13)
[2018-01-24] MEDS ORDERED: SODIUM CHLOR 0.9% 1000 ML INJ 1,000 ML IV ONE ×2 (15:28→16:15)
[2018-01-24] MEDS ORDERED: SODIUM CHLORIDE 0.9% FLUSH 10 ML FLUSH IVF PRN (15:30)
[2018-01-24] MEDS ORDERED: METOCLOPRAMIDE HCL 10 MG/2 ML VIAL IV PUSH ONE (15:30)
[2018-01-24 15:43] LABS: AUTOMATED NEUTROPHIL # 6.9 TH/MM3 (1.8-7.7); BASOPHIL # 0.2 TH/MM3 (0-0.2); BASOPHIL % 1.5 % (0.0-2.0); EOSINOPHIL # 0.2 TH/MM3 (0-0.4); EOSINOPHIL % 1.8 % (0.0-4.0); HEMATOCRIT 44.9 % (35.0-46.0); HEMOGLOBIN 14.2 GM/DL (11.6-15.3); LYMPH % 22.4 % (9.0-44.0); LYMPHOCYTE # 2.3 TH/MM3 (1.0-4.8); MEAN CELL VOLUME 80.2 FL (80.0-100.0); MEAN CORPUSCULAR HEMOGLOBIN 25.4 PG (27.0-34.0); MEAN CORPUSCULAR HGB CONC 31.7 % (32.0-36.0); MEAN PLATELET VOLUME 9.6 FL (7.0-11.0); MONO % 4.1 % (0.0-8.0); MONOCYTE # 0.4 TH/MM3 (0-0.9); NEUT % 70.2 % (16.0-70.0); PLATELET COUNT 313 TH/MM3 (150-450); RED BLOOD COUNT 5.59 MIL/MM3 (4.00-5.30); RED CELL DISTRIBUTION WIDTH 14.1 % (11.6-17.2); WHITE BLOOD COUNT 10.1 TH/MM3 (4.0-11.0)
[2018-01-24 15:45] VITALS: O2SAT 97
[2018-01-24 15:48] VITALS: BP_SYST 77; BP_SYST 91; BP_SYST 96; BP_DIAS 50; BP_DIAS 55; BP_DIAS 56; RESP 16; RESP 18
[2018-01-24 15:53] LABS: CHLORIDE 101 MEQ/L (98-107); SODIUM (NA) 136 MEQ/L (136-145)
[2018-01-24 15:55] LABS: BICARBONATE 26.2 MEQ/L (21.0-32.0); CALCIUM 9.3 MG/DL (8.5-10.1)
[2018-01-24 15:56] LABS: BLOOD UREA NITROGEN 26 MG/DL (7-18); GLUCOSE,RANDOM 140 MG/DL (74-106)
[2018-01-24 15:58] VITALS: BP 117/64
[2018-01-24 15:59] LABS: GLOMERULAR FILTRATION RATE 45 ML/MIN (>89)
[2018-01-24 16:03] LABS: TROPONIN I LESS THAN 0.02 NG/ML (0.02-0.05)
--- NOTE | 2018-01-24 16:07 | RADRPT ---
EXAM DATE: 01/24/2018 3:49 PM EDT AGE/SEX: 62 years / Female INDICATIONS: Syncopal episode today CLINICAL DATA: This is the patient's initial encounter. Patient reports that signs and symptoms have been present for 1 day and indicates a pain score of 0/10. MEDICAL/SURGICAL HISTORY: None. None. COMPARISON: No prior exams available for comparison. FINDINGS: A single AP view of the chest demonstrates the lungs to be symmetrically aerated without evidence of mass, infiltrate or effusion. The cardiomediastinal contours are unremarkable. Osseous structures a re intact. CONCLUSION: No acute cardiopulmonary process. Electronically signed by: Marlo Ames MD 01/24/2018 4:05 PM EDT
--- NOTE | 2018-01-24 16:49 | RADRPT ---
EXAM DATE: 01/24/2018 4:23 PM EDT AGE/SEX: 62 years / Female INDICATIONS: Dizziness. CLINICAL DATA: This is the patient's initial encounter. Patient reports that signs and symptoms have been present for 1 day and indicates a pain score of 0/10. MEDICAL/SURGICAL HISTORY: Hypertension. Diabetes mellitus type II. Hysterectomy. RADIATION DOSE: 62.81 CTDI (mGy) COMPARISON: No prior exams available for comparison. TECHNIQUE: CT of the head without contrast. Using automated exposure control and adjustment of the mA and/or kV according to patient size, radiation dose was kept as low as reasonably achievable to ob tain optimal diagnostic quality images. DICOM format image data is available electronically for revi ew and comparison. FINDINGS: Cerebrum: The ventricles are normal for age. No evidence of midline shift, mass lesion, hemorrhage or acute infarction. No extraaxial fluid collections are seen. Posterior Fossa: The cerebellum and brainstem are intact. The 4th ventricle is midline. The cerebe llopontine angle is unremarkable. Extracranial: The visualized portion of the orbits is intact. Skull: The calvaria is intact. No evidence of skull fracture. CONCLUSION: Negative noncontrasted CT examination. Electronically signed by: Marlo Ames MD 01/24/2018 4:48 PM EDT
[2018-01-24 17:13] LABS: BILIRUBIN, URINE NEG (NEG); BLOOD, URINE NEG (NEG); GLUCOSE,URINE NEG (NEG); KETONE, URINE NEG (NEG); NITRITE,URINE NEG (NEG); URINE COLOR YELLOW (YELLW/STRAW); URINE LEUKOCYTE ESTERASE SMALL (NEG)
[2018-01-24 17:22] LABS: BACTERIA, URINE FEW /hpf; RBC, URINE 0-3 /hpf (0-3); SQUAMOUS EPITHELIAL CELL URINE 0-5 /hpf (0-5)
[2018-01-24] MEDS ORDERED: cefTRIAXone INJ 1,000 MG in SODIUM CHLORIDE 0.9% INJ 100 ML IV ONE (17:30)
[2018-01-24 17:53] VITALS: BP 123/64; PULSE 66; RESP 16; O2SAT 95
[2018-01-24 18:46] VITALS: BP_SYST 135; BP_SYST 139; BP_SYST 159; BP_DIAS 67; BP_DIAS 69; BP_DIAS 97; RESP 16
--- NOTE | 2018-01-25 18:15 | EKG ---
Date Performed: 01/24/2018 Time Performed: 15:10:32 PTAGE: 62 years EKG: Sinus rhythm NORMAL ECG Baseline Artifact PREVIOUS TRACING : 07/03/2005 12.05 Since the previous tracing, no significant change not ed DOCTOR: Ewa Del Valle Interpretating Date/Time 01/25/2018 18:13:42
== END 2018-01-24 19:09 | disposition home or self-care (01) ==
LOC: PHED 14:54
DX: I95.1 Orthostatic hypotension (principal); E86.0 Dehydration; R82.71 Bacteriuria
CPT/HCPCS: 70450; 71045; 80048; 81001; 83605; 84484; 85025; 85610; 87040; 87086; 93005; 96361; 96365; 96375; 99285; J0696; J2765; J7030